=== PATIENT | male | born 1990 | race Hispanic/Latino ===

== ENCOUNTER 2016-09-28 08:14 | Outpatient (CLI) | payer OTHER ==
--- NOTE | 2016-09-28 11:27 | Ultrasound Report ---
RIGHT UPPER QUADRANT ABDOMINAL ULTRASOUND: 09/28/16 08:14:00 CLINICAL: Elevated liver function tests. FINDINGS: High-resolution ultrasound demonstrated a borderline-enlarged liver with marked diffuse increased echogenicity. No liver mass. Normal hepatic vasculature and inferior vena cava. Normal gallbladder and bile ducts. The gall bladder wall measures 2.3 mm in thickness. The common bile duct measures 3.0 mm diameter. The pancreas is mildly enlarged and diffusely echogenic. Normal upper abdominal aorta. The right kidney is normal and measures 10.9 x 5.3 x 5.5cm.via right renal collecting system and ureter are nondilated. No renal mass, calculus or cyst. No ascites or mass. IMPRESSION: 1. Borderline hepatomegaly and hepatic steatosis. 2. Normal biliary tract with no cholelithiasis. 3. Mild pancreatic enlargement and increased echogenicity consistent with fatty infiltration.
== END 2016-09-28 08:15 | disposition home or self-care (01) ==
LOC: SPVWC 08:14
PROVIDERS: ATTEND Internal Medicine
DX: K76.0 Fatty (change of) liver, not elsewhere classified (principal); K86.89 Other specified diseases of pancreas; R79.89 Other specified abnormal findings of blood chemistry
CPT/HCPCS: 76705